=== PATIENT | male | born 1955 | race Caucasian/White ===

== ENCOUNTER 2017-12-27 11:01 | Day surgery (SDC) | payer BC ==
[~2017-12-27 11:01] MED LIST: CEFAZOLIN 2 GM/D5W RTU 2 GM/50 ML RTUPB IV ONE; CEFAZOLIN 2 GM/D5W RTU 2 GM/50 ML RTUPB IV PRN
[2017-12-27 11:20] LABS: HEMATOCRIT 45.3 % (37.9-51.0); HEMOGLOBIN 15.8 g/dL (13.5-17.0); MEAN CORPUSCULAR HEMOGLOBIN 31.8 pg (27.0-33.4); MEAN CORPUSCULAR HGB CONC 34.8 g/dL (32.0-36.0); MEAN CORPUSCULAR VOLUME 91 fl (80-97); PLATELET COUNT 293 10^3/uL (150-450); RED BLOOD COUNT 4.97 10^6/uL (4.35-5.55); RED CELL DISTRIBUTION WIDTH 13.8 % (11.5-14.0); WHITE BLOOD COUNT 10.9 10^3/uL (4.0-10.5)
[2017-12-27 11:34] LABS: ANION GAP 7 (5-19); BLOOD UREA NITROGEN 16 mg/dL (7-20); CALCIUM 9.6 mg/dL (8.4-10.2); CARBON DIOXIDE 27 mmol/L (22-30); CHLORIDE 105 mmol/L (98-107); GLUCOSE 111 mg/dL (75-110); POTASSIUM 4.4 mmol/L (3.6-5.0); SODIUM 139.3 mmol/L (137-145)
[2017-12-27] MEDS ORDERED: HYDROMORPHONE HCL INJ/PF 2 MG/ML AMPULE ONE (11:40)
[2017-12-27] MEDS ORDERED: MIDAZOLAM 2 MG/2 ML INJ ONE (11:40)
[2017-12-27] MEDS ORDERED: FENTANYL CITRATE INJ/PF 100 MCG/2 ML AMPUL ONE (11:40)
[2017-12-27] MEDS ORDERED: PROPOFOL INJ 200 MG/20 ML VIAL IV ONE (11:41)
[2017-12-27] MEDS ORDERED: ACETAMINOPHEN 1,000 MG/100 ML RTUPB IV ONE (11:41)
--- NOTE | 2017-12-27 11:59 | RADIOLOGY REPORT (SQ) ---
EXAM DESCRIPTION: CHEST SINGLE VIEW COMPLETED DATE/TIME: 12/27/2017 11:17 am REASON FOR STUDY: surgery COMPARISON: None. EXAM PARAMETERS: NUMBER OF VIEWS: One view. TECHNIQUE: Single frontal radiographic view of the chest acquired. RADIATION DOSE: NA LIMITATIONS: None. FINDINGS: LUNGS AND PLEURA: No opacities, masses or pneumothorax. No pleural effusion. MEDIASTINUM AND HILAR STRUCTURES: No masses. Contour normal. HEART AND VASCULAR STRUCTURES: Borderline cardiomegaly BONES: No acute findings. HARDWARE: None in the chest. OTHER: No other significant finding. IMPRESSION: Borderline cardiomegaly. No acute infiltrates TECHNICAL DOCUMENTATION: JOB ID: [id number] [employer]- All Rights Reserved Reading location - IP/workstation name: [email or web address]
[2017-12-27] MEDS: BUPIVACAINE HCL 0.5 % INJ/PF 30 ML SDV ONE ×2 (12:25→12:33)
--- NOTE | 2017-12-27 12:27 | EKG REPORT ---
SEVERITY:- OTHERWISE NORMAL ECG - SINUS RHYTHM BORDERLINE LEFT AXIS DEVIATION : Confirmed by: Vadim Mc 27-Dec-2017 12:25:32
[2017-12-27] MEDS ORDERED: EPHEDRINE SULFATE INJ 50 MG/1 ML AMPULE ONE (12:42)
[2017-12-27] MEDS ORDERED: FENTANYL CITRATE INJ/PF 100 MCG/2 ML AMPUL IV PRN ×3 (12:50)
[2017-12-27] MEDS ORDERED: PROMETHAZINE HCL INJ 25 MG/1 ML VIAL IV PRN (12:50)
[2017-12-27] MEDS ORDERED: DIPHENHYDRAMINE HCL 50 MG/ML VIAL IV PRN (12:50)
[2017-12-27] MEDS ORDERED: SUGAMMADEX SODIUM 200 MG/2 ML SDV IV ONE (13:11)
[2017-12-27] MEDS ORDERED: ONDANSETRON 4 MG TAB.RAPDIS PO PRN (13:48)
[2017-12-27] MEDS ORDERED: HYDROCODONE/ACETAMINOPHEN 10-325 MG TABLET PO PRN (13:49)
--- NOTE | 2017-12-27 13:49 | Discharge Summary ---
Discharge Summary (SDC) - Discharge Final Diagnosis: Strangulated omentum within an incarcerated umbilical hernia. Date of Surgery: 12/27/17 Discharge Date: 12/27/17 Condition: Stable Treatment or Instructions: Discharge home. Diet as tolerated. Activity: No lifting greater than 10 pounds x 6 weeks. Follow-up with me in 1 week. OK to shower starting . No tub baths or swimming x 2 weeks. Gibbon 10/325 mg p.o. every 6 hours as needed for pain. Referrals: JEREMY BAXTER MD [Primary Care Provider] - Discharge Diet: As Tolerated Respiratory Treatments at Home: Deep Breathing/Coughing, Incentive Spirometer Discharge Activity: No Lifting Over 10 Pounds Home Care Assistance: None Needed Report the Following to Your Physician Immediately: Shortness of Breath, Nausea , Vomiting, Increase in Pain, Fever over 101 Degrees, Unusual Bleeding, Redness , Swelling, Warmth, Increased Soreness, Drainage-Yellow
[2017-12-27] MEDS ORDERED: SUCCINYLCHOLINE CHLORIDE INJ 200 MG/10 ML VIAL ONE (14:01)
[2017-12-27] MEDS ORDERED: ROCURONIUM BROMIDE INJ 50 MG/5 ML VIAL IV ONE (14:01)
[2017-12-27] MEDS ORDERED: ONDANSETRON HCL INJ/PF 4 MG/2 ML SDV ONE (14:01)
[2017-12-27] MEDS ORDERED: DEXAMETHASONE SOD PHOSPHATE INJ 4 MG/1 ML VIAL ONE (14:01)
--- NOTE | 2017-12-27 14:08 | Operative Report ---
Nonrecallable Operative Report DATE OF SURGERY: 12/27/17 PREOPERATIVE DIAGNOSIS: Incarcerated umbilical hernia. POSTOPERATIVE DIAGNOSIS: Strangulated omentum within an incarcerated umbilical hernia. OPERATION: 1. Open repair of a strangulated/incarcerated umbilical hernia. 2. Implantation of mesh for hernia repair. SURGEON: DINA JOSE ANESTHESIA: GA TISSUE REMOVED OR ALTERED: 1. Necrotic omentum. 2. Necrotic skin at the umbilicus. COMPLICATIONS: Necrotic omentum, requiring resection. Necrotic skin at the base of the umbilicus, requiring resection. ESTIMATED BLOOD LOSS: Minimal PROCEDURE: Drains/implants: [address] hernia mesh. Procedure in detail: After informed consent was obtained, the patient was brought into the operating room and laid in the supine position. The area of the abdomen was prepped and draped in a normal sterile fashion. A vertical midline incision was created around the umbilicus. Dissection was carried down through the subcutaneous tissue using sharp and blunt dissection. The cicatrix was freed from the anterior abdominal wall, and the hernia sac was entered sharply. There was necrotic omentum within the umbilical hernia sac. The cicatrix and umbilicus were freed from the hernia contents. The necrotic omentum was ligated and divided using 0 silk suture. The healthy omentum was returned to the abdominal cavity. Next, the defect was measured. The defect appeared to be approximately 2.5 cm in maximal diameter. Secondary to this, a mesh was chosen to complete the repair. An 8 cm Ventra Lux hernia mesh was chosen, and felt to be adequate. A preperitoneal plane was dissected using a judicious sharp and blunt technique. The 8 cm mesh laid in the preperitoneal space very well. The mesh was sutured to the anterior abdominal wall using 0 Prolene suture using a trans-fascial mattress technique. Once this was completed, the fascia was closed using 0 Prolene suture in [id number] fashion. Next, the skin of the umbilicus was inspected. The base of the umbilicus was visually inspected. There was a necrotic area present that was felt to be nonviable. Secondary to this, an elliptical incision was completed surrounding the umbilicus. The entirety of the umbilicus was excised from the patient and passed off the field. The hernia repair was then inspected, and felt to be in good order. The subcutaneous tissue was closed using 3-0 Vicryl suture in simple running fashion. The overlying skin was closed using 4-0 Vicryl Rapide suture in subcuticular fashion. A dressing was placed, and the procedure was concluded. All sponge, instrument, and needle counts were correct x2. Condition: Stable.
[2017-12-27 16:08] VITALS: BP 141/82
== END 2017-12-27 15:40 | disposition home or self-care (01) ==
LOC: OROUT 11:01 → EDBD 14:45 → OROUT 15:40
PROVIDERS: ATTEND Surgery
DX: K42.0 Umbilical hernia with obstruction, without gangrene (principal); Z85.46 Personal history of malignant neoplasm of prostate
CPT/HCPCS: 36415; 85027; 80048; 71045; 93005; 93010; 49587; C1781; J2250; J3490 ×3; J1100; J3010; J0330; J2405; J2704; J0690; J0131; 750; J1170